=== PATIENT | male | born 1980 | race Caucasian/White ===

== ENCOUNTER 2017-10-27 10:09 | Emergency (ER) | payer BC, OTHER ==
[2017-10-27 10:21] VITALS: BMI 30.8
[2017-10-27 10:24] VITALS: RESP 18
[2017-10-27] MEDS ORDERED: Sodium Chloride 0.9% 1,000 ML IV ONE ×2 (11:32→14:13)
[2017-10-27] MEDS ORDERED: Lidocaine 2% Inj (20ml) INFIL ONE (11:41)
[2017-10-27] MEDS ORDERED: Sodium Chloride 0.9% 1,000 ML ONE (11:43)
[2017-10-27] MEDS ORDERED: Morphine 4 MG/ML VIAL ONE (11:48)
[2017-10-27 12:25] LABS: BASO # 0.1 K/uL (0.0-0.2); BASO % 0.6 % (0.0-2.0); EOS # 0.4 K/uL (0.0-0.7); EOS % 3.6 % (0.0-4.0); HEMOGLOBIN 14.6 g/dL (12.0-18.0); LYMPH # 2.3 K/uL (1.0-4.3); LYMPH % 19.1 % (20.0-40.0); MEAN CELL VOLUME 86.3 fL (80.0-94.0); MEAN CORPUSCULAR HEMOGLOBIN 30.3 pg (27.0-31.0); MEAN CORPUSCULAR HGB CONC 35.1 g/dL (33.0-37.0); MEAN PLATELET VOLUME 9.1 fL (7.2-11.7); MONO # 0.9 K/uL (0.0-0.8); MONO % 7.5 % (0.0-10.0); NEUT # 8.2 K/uL (1.8-7.0); NEUT % 69.2 % (50.0-75.0); NRBC % 0.1 % (0.0-2.0); RBC 4.81 Mil/uL (4.40-5.90); RED CELL DISTRIBUTION WIDTH 12.7 % (11.5-14.5); WHITE BLOOD COUNT 11.8 K/uL (4.8-10.8)
[2017-10-27 12:32] LABS: INR 0.9; PROTHROMBIN TIME 10.5 SECONDS (9.7-12.2)
[2017-10-27 12:38] LABS: ALBUMIN 4.1 g/dL (3.5-5.0); ALT/SGPT 40 U/L (21-72); AST/SGOT 30 U/L (17-59); BLOOD UREA NITROGEN 13 mg/dL (9-20); CALCIUM 9.1 mg/dl (8.6-10.4); GFR AFRICAN-AMERICAN > 60; GFR NON-AFRICAN AMERICAN > 60
[2017-10-27] MEDS ORDERED: cefTRIAXone IV 1 gm in Dextros 50 ML IVPB ONE (12:46)
[2017-10-27 13:50] VITALS: BP 153/90; PULSE 67; TEMP 98.8; O2SAT 98
[2017-10-27 13:57] LABS: SQUAMOUS EPITHIAL 1 /hpf (0-5); URINE BACTERIA RARE (<OCC); URINE BILIRUBIN NEGATIVE (NEGATIVE); URINE BLOOD 1+ (NEGATIVE); URINE CLARITY Clear (Clear); URINE COLOR Yellow (YELLOW); URINE GLUCOSE (UA) NORMAL (Normal); URINE LEUKOCYTE ESTERASE 1+ Leu/uL (Negative); URINE PROTEIN NEGATIVE (NEGATIVE)
--- NOTE | 2017-10-27 14:47 | C.PDOC ---
History Of Present Illness Pt c/o penis swelling and today he became unable to urinate. Time Seen by Provider: 10/27/17 10:54 Chief Complaint (Nursing): Male Genitourinary History Per: Patient Onset/Duration Of Symptoms: Days (1) Current Symptoms Are (Timing): Worse Severity: Severe Quality Of Discomfort: Burning, "Pain" Associated Symptoms: Urinary Symptoms Alleviating Factors: None Additional History Per: Prior Records Past Medical History Reviewed: Historical Data, Nursing Documentation, Vital Signs Vital Signs: Last Vital Signs Temp 98.8 F 10/27/17 13:50 Pulse 67 10/27/17 13:50 Resp 18 10/27/17 13:50 BP 153/90 H 10/27/17 13:50 Pulse Ox 98 10/27/17 13:50 - Medical History PMH: Asthma - [facility] Procedures HEMORRHOID EVACUATION (04/17/15) Family History: States: Unknown Family Hx - Social History Hx Tobacco Use: Yes Hx Alcohol Use: Yes (occasionally ) Hx Substance Use: Yes (marijuana) - Immunization History Hx Tetanus Toxoid Vaccination: No Hx Influenza Vaccination: No Hx Pneumococcal Vaccination: No Review Of Systems Except As Marked, All Systems Reviewed And Found Negative. Constitutional: Negative for: Fever, Weakness Cardiovascular: Negative for: Chest Pain Respiratory: Negative for: Shortness of Breath Gastrointestinal: Positive for: Abdominal Pain (suprapubic pressure) Genitourinary: Positive for: Dysuria, Penile Pain. Negative for: Scrotal Pain Musculoskeletal: Negative for: Neck Pain, Back Pain Skin: Negative for: Rash Neurological: Negative for: Weakness, Numbness Physical Exam - Physical Exam Appears: Non-toxic, Other (Uncomfortable) Skin: Normal Color, Warm, Dry Head: Atraumatic, Normacephalic Eye(s): bilateral: Normal Inspection, PERRL, EOMI Oral Mucosa: Moist Neck: Normal ROM, Supple Cardiovascular: Rhythm Regular Respiratory: Normal Breath Sounds, No Accessory Muscle Use Gastrointestinal/Abdominal: Soft, Tenderness (distended urinary bladder) Back: No CVA Tenderness Male Genital: No Testicular Tenderness, No Testicular Swelling, No Scrotal Swelling, Circumcised, Other (swelling/inflamation of prepuce with complete obstrction for urethral meatus due to edema) Extremity: Normal ROM Neurological/Psych: Oriented x3, Normal Motor, Normal Sensation ED Course And Treatment - Laboratory Results Result Diagrams: 10/27/17 12:19 10/27/17 12:19 O2 Sat by Pulse Oximetry: 98 Pulse Ox Interpretation: Normal - Physician Consult Information Physician Contacted: Chad Eli (Urology) Outcome Of Conversation: He was planning on placing a suprapubic catheter, but pt became able to urinate on his own prior. He examined pt and suggested pt be discharge home on antibiotics. Disposition Counseled Patient/Family Regarding: Studies Performed, Diagnosis, Need For Followup, Rx Given - Disposition Referrals: Chad Eli MD [Staff Provider] - Disposition: HOME/ ROUTINE Disposition Time: 14:49 Condition: IMPROVED Additional Instructions: Follow up with the urologist this week for further evaluation and treatment. Return to the ER if you are unable to urinate again, develop abdominal pain, back pain, testicle pain, fever, worsening of symptoms or if you have any other concerns. Prescriptions: Acyclovir 400 mg PO TID #21 tablet levoFLOXacin [Levaquin] 500 mg PO DAILY #7 tab Instructions: Urethritis (DC) - Clinical Impression Clinical Impression: Urethritis, Acute urinary retention, Inflammation of penis
== END 2017-10-27 15:19 | disposition home or self-care (01) ==
LOC: C.ER 10:09
DX: N34.2 Other urethritis (principal); R33.8 Other retention of urine; N48.29 Other inflammatory disorders of penis; Z72.0 Tobacco use
CPT/HCPCS: 80053; 81001; 85025; 85610; 85730; 87086; 87491; 87591; 96361; 96374; 96375; 99285; J0696; J2270; J7040